=== PATIENT | male | born 1985 | race Hispanic/Latino ===

== ENCOUNTER → 2018-05-20 | Outpatient (CLI) | payer OTHER | LOC: M RAD 08:48 | DX: J34.1 Cyst and mucocele of nose and nasal sinus (principal); J01.01 Acute recurrent maxillary sinusitis | CPT/HCPCS: 70486 ==

== ENCOUNTER 2018-07-08 06:25 | Emergency (ER) | payer OTHER ==
[~2018-07-08] VITALS: Ht 172.7 cm; Wt 100.0 kg
[2018-07-08 07:41] LABS: INFLUENZA A AMPLIFICATION NEGATIVE (NEGATIVE); INFLUENZA B AMPLIFICATION NEGATIVE (NEGATIVE)
[2018-07-08] MEDS ORDERED: IBUP-1022 PO (08:38)
[2018-07-08] MEDS ORDERED: BENZ200C70 PO (08:38)
[2018-07-08] MEDS ORDERED: ONDA4TAB6 PO (08:38)
--- NOTE | 2018-07-08 08:41 | REP ---
Clinical: Productive cough and fever . Comparison: None . Technique: PA and lateral. Findings: The mediastinum and cardiac silhouette are normal. The lung menjivar are clear and without acute consolidation, effusion, or pneumothorax. The skeletal structures are intact and normal. Impression: 1. No acute cardiopulmonary process. Electronically Signed by Masoud Cordon MD 07/08/2018 08:32 A
[2018-07-08 08:46] VITALS: BP 118/77
[2018-07-09] MEDS ORDERED: PROAAER10 INH (21:36)
[2018-07-09] MEDS ORDERED: PSEU1TAB3 PO (21:36)
== END 2018-07-08 08:53 | disposition home or self-care (01) ==
LOC: M ED 06:25
DX: J06.9 Acute upper respiratory infection, unspecified (principal)

== ENCOUNTER 2018-07-09 19:36 | Emergency (ER) | payer OTHER ==
[~2018-07-09] VITALS: Ht 172.7 cm; Wt 100.0 kg
[~2018-07-09 19:36] MED LIST: BENZ200C70 PO; IBUP-1022 PO; ONDA4TAB6 PO
[2018-07-09] MEDS ORDERED: PSEUDOEPHEDRINE 30 MG TAB PO STA (20:34)
[2018-07-09] MEDS ORDERED: ALBUTEROL SULFATE 2.5 MG/0.5 ML INH NEB SOLN NEB ONE (20:45)
[2018-07-09] MEDS ORDERED: PSEU1TAB3 PO (21:36)
[2018-07-09] MEDS ORDERED: PROAAER10 INH (21:36)
[2018-07-09 21:45] VITALS: BP 154/91
== END 2018-07-09 21:46 | disposition home or self-care (01) ==
LOC: M ED 19:36
DX: J06.9 Acute upper respiratory infection, unspecified (principal); B34.9 Viral infection, unspecified